=== PATIENT | male | born 1980 | race Native Hawaiian/Other Pacific Islander ===

== ENCOUNTER 2016-10-13 08:50 | Outpatient (CLI) | payer BC | END 2016-10-13 10:00 | disposition home or self-care (01) | LOC: US 08:50 | DX: R10.13 Epigastric pain (principal) ==

== ENCOUNTER 2017-12-09 09:18 | Emergency (ER) | payer BC ==
[~2017-12-09] VITALS: Ht 175.3 cm; Wt 95.3 kg
[2017-12-09 09:21] VITALS: TEMP 98.1
[2017-12-09 11:10] VITALS: BP 138/69
== END 2017-12-09 11:11 | disposition home or self-care (01) ==
LOC: ED 09:18
DX: T63.461A Toxic effect of venom of wasps, accidental (unintentional), initial encounter (principal)
CPT/HCPCS: 96374; 96375; 99284; J1200; J2930

== ENCOUNTER 2019-10-18 14:22 | Outpatient (CLI) | payer BC | END 2019-10-18 19:05 | disposition home or self-care (01) | LOC: RAD 14:22 | DX: L03.116 Cellulitis of left lower limb (principal) ==

== ENCOUNTER 2020-01-04 09:05 | Outpatient (CLI) | payer BC | END 2020-01-04 19:58 | disposition home or self-care (01) | LOC: RAD 09:05 | DX: M54.12 Radiculopathy, cervical region (principal); M54.14 Radiculopathy, thoracic region ==